=== PATIENT | male | born 1955 | race Two or more races ===

== ENCOUNTER → 2018-08-23 | Day surgery (SDC) | payer BC ==
[~2018-08-23] MED LIST: FENTAnyl 50 MCG/ML VIAL; MIDAZOLAM 1 MG/ML 2 ML INJ
== END | disposition home or self-care (01) ==
LOC: GIL 12:34
DX: Z12.11 Encounter for screening for malignant neoplasm of colon (principal); K57.90 Diverticulosis of intestine, part unspecified, without perforation or abscess without bleeding; K64.8 Other hemorrhoids
CPT/HCPCS: 45378